=== PATIENT | male | born 1955 | race Caucasian/White ===

== ENCOUNTER → 2016-11-12 | Day surgery (SDC) | payer BC ==
[~2016-11-12] VITALS: Ht 188 cm; Wt 132.0 kg
[~2016-11-12] MED LIST: ACET-1256 PO; ACETAMINOPHEN 325 MG TAB PO PRN; AMLO-110 PO; ASPI81TA28 PO; ATEN50TA8 PO; ATOR-24 PO; ATROPINE SULFATE 0.1 MG/ML 5ML SYR IV PRN; CARV12.52 PO; CLOP1TAB5 PO; COLC0.6T54 PO; CYAN10005 PO; DEXL60CA4 PO; FENTANYL CITRATE INJ 50 MCG/1 ML 2 ML VIAL ONE; FURO-85 PO; HEPARIN SOD (PORCINE) 1000 UNIT/ML 10 ML VIAL ONE; INDO-22 PO; ISOS60TA2 PO; MIDAZOLAM HCL 1 MG/ML 2ML VIAL ONE; NITROGLYCERIN/D5W 100MCG/ML 20ML SYR ONE; NTRGSL/4 UT; NiCARDipine HCL INJ 2.5 MG/ML 10 ML AMP ONE; OMEG10007 PO; ONDANSETRON INJ 2 MG/ML 2 ML VIAL IV PRN; RAMI5CAP32 PO; SODIUM CHLORIDE 0.9% 1000ML 250 ML IV PRN
[2016-11-12 08:47] VITALS: BP 143/84; PULSE 65; TEMP 36.5; O2SAT 95; Ht 188 cm; Wt 132.0 kg
--- NOTE | 2016-11-12 11:41 | Discharge Instructions ---
Discharge Instructions Procedure Procedure Date: Nov 12, 2016. Reason for Visit: Abdnormal Stress Test, Angina *Dr Richey To Do*. Discharge Discharge Date: Nov 12, 2016. Discharge Diagnosis: s/p cardiac catheterization demonstrating 99% ostial RCA occlusion with left to right collaterals Last Recorded Wt (Kilograms): 132 Anesthesia Post Anesthesia Instructions: If you have had General Anesthesia or IV Sedation: * Do not drive today. * Resume driving when surgeon permits. * Do not make important decisions or sign legal documents today. * Call surgeon for: 1. Temperature elevations greater than 101 degrees F. 2. Uncontrollable pain. 3. Excessive bleeding. 4. Persistent nausea and vomiting. 5. Medication intolerance (nausea, vomiting or rash). * For nausea and vomiting use only clear liquids such as: tea, soda, bouillon until nausea subsides, then gradually increase diet as tolerated. * If you have any concerns or questions, call your surgeon's office. If physician is unavailable and it is an emergency, call 911 or go to the nearest emergency room. Instructions Activity Recommendations: limitations as noted below Return to School/Work: with the following limitations Recommended Home Diet: low sodium, low cholesterol Allergies: Coded Allergies: No Known Allergies (Unverified , 11/12/16) Provider Instructions ACTIVITY RECOMMENDATIONS: Excess manipulation of the wrist should be avoided for the next 24-48 hours. * No lifting over 2 pounds (approximately a 1/2 gallon of milk) with the utilized arm for 24 hours. * No strenuous activity such as bowling or tennis for 3 days. * Keep the site of the procedure covered with a bandage for 24 hours. *You may shower the day after the procedure. Do not take a tub bath or submerge the puncture site in water for the next 3 days. *Do not operate any motorized equipment for 3 days. SPECIAL CARE INSTRUCTIONS: The site may be slightly bruised and sore following your procedure. Should any of the following occur, contact the DrNubia who performed your procedure. 1. Redness/inflammation, swelling, chills, or fever, or colored drainage at procedure site within 3-7 days after your procedure. 2. Coldness, discoloration, ongoing numbness, severe pain, or swelling. Expect mild tingling of hand and tenderness at the puncture site for up to three days. If this persists beyond three days, or other symptoms develop, notify the Dr. who performed your procedure. BLEEDING: If the procedure site on your wrist begins to bleed, do not panic 1. Place 1 or 2 fingers firmly just slightly above the insertion site to stop the bleeding. You may be able to feel your pulse as you hold pressure. 2. Lift your finger after 5 minutes to see if the bleeding has stopped. 3. Once the bleeding has stopped, gently wipe the wrist area clean with a bandage. * If the bleeding from your wrist does not stop after 10 minutes, or if there is a large amount of bleeding or spurting, call 911 ([address] not drive yourself to the hospital). SKIN IRRITATION: * You may experience some redness and/or swelling in the area where radiation was administered. If any skin irritation occurs, please contact your family physician. FOLLOW UP VISIT: Keep any scheduled doctor appointments. Follow Up Additional Instructions: Avoid strenuous activity until follow up with Dr. Richey Follow-up with: Dr. Richey as scheduled. Padmini Bee Recommendations: Call your doctor if: * Temperature above 101 degrees * Pain not relieved by pain medicine ordered * There is increased drainage or redness from any incision * You have any unanswered questions or concerns. Your Doctors Instructions noted above were prepared by provider Jaxon Richey. Patient Signature Section: Patient Instructions Signature Page Michael Myers Patient (or Guardian) Signature/Date: I have read and understand the instructions given to me by my caregivers. Caregiver/RN/Doctor Signature/Date: The above-named patient and/or guardian has received patient instructions on this date. + Original Patient Signature Page (only) stays with chart. Please make copy for patient.
--- NOTE | 2016-11-12 11:45 | Cardiac Catheterization ---
Procedure Note Procedure Date Nov 12, 2016. Pre-Procedure Diagnosis Angina, Positive Stress Test, CAD AUC Score 8 Post-Procedure Diagnosis Severe CAD Procedure(s) Performed Coronary Angiography, Left Heart Cath Operator [employer] Dr. Richey Veterinary Technician(s) Arnel RTR Estimated Blood Loss 8cc Medication(s) Fentanyl, Heparin, Nicardipine, Nitroglycerin, Versed, Lidocaine 1% Summary of Findings 99% ostial RCA occlusion with left to right collaterals Hemodynamics Rest Ao: 107/73/89 Final Ao: 134/76/101 LV: 133/6/11 Specimens None Radiation Exposure (mGy) 2411 Contrast (mls) 145 Procedural Complication(s) None Disposition Mobile Application Development Lead Holding/Recovery ACC Data Cardiac Status Clinical evaluation leading to the procedure CAD Presntation: Unstable angina, Positive Stress Test Anginal Classification: CCS II Heart Failure: No Cardiogenic Shock w/in 24Hrs: No Cardiac Arrest w/in 24Hrs: No Imaging studies past 6 months: Yes Stress studies past 6 months: Yes Stress Echocardiogram: Yes - Positive, Risk/Extent of Ischemia (High) Stress Testing w/SPECT MPI: No Cardiac CTA: No Coronary Anatomy Dominant: Right Left Main (% Stenosis): Normal LAD (% Stenosis): Ostial (0%), Proximal (10%), Mid (30%), Distal (30%) D1 (% Stenosis): Normal D2 (% Stenosis): Normal D3 (% Stenosis): Ostial (40%), Proximal (0%), Mid (0%), Distal (0%) Circumflex (% Stenosis): Ostial (20%), Proximal (10%), Mid (0%), Distal (0%) OM1 (% Stenosis): Ostial (0%), Proximal (0%), Mid (20%), Distal (10%) R PDA (% Stenosis): Ostial (99% ostial. Large vessel fill via left to right collaterals.) Ramus (% Stenosis): Normal (large vessel) Diagnostic Status: Elective Closure Device Percutaneous Entry Location: Radial Closure Device: Radial Band Recommendations: management recommendations (Will discuss treatment of RCA GENERAL PARTNER with interventionalist at tertiary care center, Add Imdur 60mg daily) Intraprocedure Events Significant Dissection: No Perforation: No
[2016-11-12 14:00] VITALS: BP 128/80; PULSE 60; O2SAT 95
--- NOTE | 2016-11-13 10:36 | Procedure Note ---
Post-Mod Sedation Assessment General Date of Moderate Sedation Nov 13, 2016. Review - Discharge Criteria Vital Signs Stable: Yes Alert/Oriented/Conversant: Yes Returned to Baseline Mental St: Yes Nausea Absent/Minimal: Yes Pain/Discomfort/Absent/Minimal: Yes Normal/Baseline Respirations: Yes Active Bleeding?: No Pt Received D/C Instructions: Yes Prescriptions Given: Transmitted Specific Proced. D/C Criteria Distal Pulses Present (Cardiac: Yes Groin site assessed-Card Cath: Yes Voided Prior To Discharge: Yes Discharged Patients Adult Escort/Transportation: Yes
--- NOTE | 2016-11-13 10:37 | Procedure Note ---
Pre-Mod Sedation Assessment General Date of Moderate Sedation: Nov 13, 2016. Review Cardiovascular: regular rate, rhythm, no edema, no gallop, no JVD, no murmur Abdomen: soft Lungs: chest non-tender, lungs clear Pre-Sedation Airway Assessment Oral Cavity: WNL Short Thick Neck: No Hx of Sleep Apnea: No Smoking Status: Never Smoker ASA Classification: Class III Procedure Planning Contraindications-for Mod Sed: None Yes Notes The planned sedation has been discussed with the patient and consent obtained. I have identified the patient, determined the appropriateness of sedation and have assessed the patient immediately prior to the procedure. All medicine(s) and interventions are by my order.
== END | disposition home or self-care (01) ==
LOC: C.CATH 08:30
PROVIDERS: ATTEND Internal Medicine Cardiovascular Disease
DX: I20.8 Other forms of angina pectoris (principal); R94.39 Abnormal result of other cardiovascular function study; I49.3 Ventricular premature depolarization; R07.89 Other chest pain; R00.1 Bradycardia, unspecified; K21.0 Gastro-esophageal reflux disease with esophagitis; M19.90 Unspecified osteoarthritis, unspecified site; L71.9 Rosacea, unspecified; M10.9 Gout, unspecified; N52.9 Male erectile dysfunction, unspecified; E78.5 Hyperlipidemia, unspecified; Z68.37 Body mass index [BMI] 37.0-37.9, adult; I10 Essential (primary) hypertension; K44.9 Diaphragmatic hernia without obstruction or gangrene; Q27.33 Arteriovenous malformation of digestive system vessel; I77.810 Thoracic aortic ectasia; R91.1 Solitary pulmonary nodule; Z82.49 Family history of ischemic heart disease and other diseases of the circulatory system; Z80.0 Family history of malignant neoplasm of digestive organs; Z87.891 Personal history of nicotine dependence; I25.10 Atherosclerotic heart disease of native coronary artery without angina pectoris

== ENCOUNTER → 2017-06-20 | Day surgery (SDC) | payer BC ==
[~2017-06-20] VITALS: Ht 190.5 cm; Wt 130.0 kg
[2017-06-20 11:16] VITALS: Ht 190.5 cm; Wt 130.0 kg
[2017-06-20 11:17] VITALS: BP 135/80; PULSE 57; TEMP 36.9; O2SAT 97
[2017-06-20 11:31] LABS: HEMATOCRIT 48.4 % (42-52); MEAN CORPUSCULAR HEMOGLOBIN 32.4 pg (25-34); MEAN PLATELET VOLUME 9.8 fL (7.4-10.4); PLATELET COUNT 228 K/uL (130-400); RED BLOOD COUNT 5.15 M/uL (4.7-6.1); WHITE BLOOD COUNT 5.78 K/uL (4.8-10.8)
[2017-06-20 11:35] LABS: MEAN CORPUSCULAR HGB CONC 34.5 g/dl (32-36)
[2017-06-20 11:42] LABS: PROTHROMBIN TIME (PATIENT) 10.7 SECONDS (9.0-12.0)
[2017-06-20 12:56] LABS: BUN/CREATININE RATIO 15.2 (10-20); CALCIUM 9.2 mg/dl (8.5-10.1); CREATININE 0.91 mg/dl (0.60-1.40); POTASSIUM 4.4 mmol/L (3.5-5.1)
--- NOTE | 2017-06-20 14:06 | Procedure Note ---
Pre-Mod Sedation Assessment General Date of Moderate Sedation: Jun 20, 2017. Vital Signs: Vital Signs Past 12 Hours Date Time Temp Pulse Resp B/P (MAP) Pulse Ox O2 Delivery O2 Flow Rate FiO2 06/20/17 11:17 36.9 57 18 135/80 97 Room Air Review Cardiovascular: regular rate, rhythm, no edema, no gallop Abdomen: normal bowel sounds, non tender, soft Lungs: chest non-tender, lungs clear, normal breath sounds Pre-Sedation Airway Assessment Oral Cavity: WNL Short Thick Neck: Yes Hx of Sleep Apnea: Yes Smoking Status: Former Smoker Mallampati Classification: Class III ASA Classification: Class IV Procedure Planning Contraindications-for Mod Sed: None Yes Notes The planned sedation has been discussed with the patient and consent obtained. I have identified the patient, determined the appropriateness of sedation and have assessed the patient immediately prior to the procedure. All medicine(s) and interventions are by my order.
--- NOTE | 2017-06-20 14:06 | History & Physical Bridge Note ---
H&P Re-Evaluation Bridge Note: I have examined the patient, reviewed the History & Physical and in the interval since the performance of the History & Physical I have noted the following changes of clinical significance: No changes noted
--- NOTE | 2017-06-20 14:07 | Procedure Note ---
Post-Mod Sedation Assessment General Date of Moderate Sedation Jun 20, 2017. Vital Signs: Vital Signs Past 12 Hours Date Time Temp Pulse Resp B/P (MAP) Pulse Ox O2 Delivery O2 Flow Rate FiO2 06/20/17 11:17 36.9 57 18 135/80 97 Room Air Review - Discharge Criteria Vital Signs Stable: Yes Alert/Oriented/Conversant: Yes Returned to Baseline Mental St: Yes Nausea Absent/Minimal: Yes Pain/Discomfort/Absent/Minimal: Yes Normal/Baseline Respirations: Yes Active Bleeding?: No Pt Received D/C Instructions: N/A Prescriptions Given: None Specific Proced. D/C Criteria Distal Pulses Present (Cardiac: Yes Groin site assessed-Card Cath: N/A Voided Prior To Discharge: N/A Discharged Patients Adult Escort/Transportation: N/A
[2017-06-20 14:14] LABS: ISTAT CREATININE 0.8 mg/dl (0.6-1.3); ISTAT HEMOGLOBIN 15.6 g/dl (14.0-18.0); ISTAT IONIZED CALCIUM 1.11 mmol/l (1.12-1.32)
--- NOTE | 2017-06-20 14:33 | Cardiac Catheterization ---
Procedure Note Procedure Date Jun 20, 2017. Pre-Procedure Diagnosis Angina, CAD AUC Score 7 Post-Procedure Diagnosis Severe CAD Procedure(s) Performed Coronary Angiography, Left Heart Cath Friction Saw Operator Dr. Richey Party Plan Sales Unit Sales Leader(s) Darrion FIRER KILN Estimated Blood Loss 10cc Medication(s) Fentanyl, Heparin, Nicardipine, Nitroglycerin, Versed, Lidocaine 1% Summary of Findings Severe ostial RCA in stent restenosis Hemodynamics Rest Ao: 110/70/88 Final Ao: 135/70/102 LV: 113/2/5 Recommendations PCI without planned CABG Specimens None Radiation Exposure (mGy) 3225 Contrast (mls) 180 Anesthesia Moderate sedation, Start 1245, End 1350 Procedural Complication(s) None Disposition Manager Pacu Holding/Recovery ACC Data Cardiac Status Clinical evaluation leading to the procedure CAD Presntation: Unstable angina Anginal Classification: CCS III Heart Failure: No Cardiogenic Shock w/in 24Hrs: No Cardiac Arrest w/in 24Hrs: No Stress studies past 6 months: Yes Stress Testing w/SPECT MPI: Yes - Positive, Risk/Extent of Ischemia ( Intermediate) Coronary Anatomy Dominant: Right (RCA subselectively visualized with JR4, unsuccessful attempts made with AR1, ALR1,2, 3DRC, and site seer 3.5 catheter) Left Main (% Stenosis): Normal LAD (% Stenosis): Proximal (10%), Mid (30%), Distal (20%) D1 (% Stenosis): Proximal (20%), Mid (20%), Distal (10%) D2 (% Stenosis): Ostial (30%) Circumflex (% Stenosis): Proximal (10%), Mid (10%), Distal (10%) OM1 (% Stenosis): Proximal (20%), Mid (10%), Distal (10%) L PL1 (% Stenosis): Mid (10%), Distal (10%) RCA (% Stenosis): Ostial (95% in stent restenosis. 2-3mm of stent extends from coronary ostium into aorta.), Proximal (90% in stent restenosis extending approximately 1 cm from ostium. Stent appears patent distal to ostial stenosis.) R PDA (% Stenosis): Ostial (Inadequately visualized) R PL1 (% Stenosis): Ostial (Inadequately visualized) Diagnostic Status: Urgent Closure Device Percutaneous Entry Location: Radial Closure Device: Radial Band Recommendations: PCI without planned CABG Intraprocedure Events Significant Dissection: No Perforation: No
[2017-06-20 16:00] VITALS: BP 120/84; PULSE 68; O2SAT 95
== END | disposition home or self-care (01) ==
LOC: C.CATH 10:40
PROVIDERS: ATTEND Internal Medicine Cardiovascular Disease
DX: I25.10 Atherosclerotic heart disease of native coronary artery without angina pectoris (principal); T82.855A Stenosis of coronary artery stent, initial encounter; Y83.1 Surgical operation with implant of artificial internal device as the cause of abnormal reaction of the patient, or of later complication, without mention of misadventure at the time of the procedure; K21.0 Gastro-esophageal reflux disease with esophagitis; M10.9 Gout, unspecified; M15.9 Polyosteoarthritis, unspecified; E78.5 Hyperlipidemia, unspecified; I10 Essential (primary) hypertension; K44.9 Diaphragmatic hernia without obstruction or gangrene; Z79.899 Other long term (current) drug therapy; Z79.82 Long term (current) use of aspirin; Z87.891 Personal history of nicotine dependence

== ENCOUNTER 2018-11-20 08:10 | Inpatient (IN) ==
--- NOTE | 2018-10-28 15:34 | Anesthesiology Consultation ---
Date of Service October 28, 2018 Assessment & Plan (1) Encounter for pre-operative examination: Plan: Cardiology clearance 11/03/2018: Recommend resting echocardiography to assess aortic valve status, systolic function. Patient may proceed as planned if echocardiography is acceptable. ---11/10: "Echo acceptable, unchanged from 06/2017. Ok for procedure." OK TO HOLD PLAVIX X 7 DAYS PRIOR TO SURGERY. Chart Review Chart Review: Acceptable Risk for Surgery and Patient seen in Pre Admission Testing Teaching & Discussion Instructed NPO after midnight before surgery, except medications with 15 cc of water. Medication instructions provided according to the PAT guidelines. History Surgery Operation Date: 11/20/18 12:30 Proposed Procedures p Right Reverse Total Shoulder Arthroplasty - Edson Galindo, Height/Weight Height: 6 ft 3 in Weight: 139.5 kg Allergies Allergy/AdvReac Type Severity Reaction Status Date / Time No Known Allergies Allergy Verified 10/26/18 11:56 Medications Home Medications Medication Instructions Recorded Confirmed Last Taken amlodipine [Norvasc] 2.5 mg PO DAILY 09/02/18 10/26/18 Unknown atorvastatin [Lipitor] 40 mg PO DAILY 09/02/18 10/26/18 Unknown carvedilol [Coreg] 12.5 mg PO BID 09/02/18 10/26/18 Unknown clopidogrel [Plavix] 75 mg PO DAILY 09/02/18 10/26/18 Unknown dexlansoprazole [Dexilant] 60 mg PO DAILY 09/02/18 10/26/18 Unknown ramipril 5 mg PO BID 09/02/18 10/26/18 Unknown Vitamin B 1 tab PO DAILY 10/26/18 10/26/18 Unknown Vitamin B12 1 tab PO DAILY 10/26/18 10/26/18 Unknown aspirin 81 mg PO DAILY 10/26/18 10/26/18 Unknown furosemide [Lasix] 20 mg PO DAILY PRN 10/26/18 10/26/18 Unknown Past Medical History Medical History Rotator cuff arthropathy of right shoulder Alcohol abuse 4-6 drinks per day CAD (coronary artery disease) Has had 4 total caths. 2 stents to the RCA early 2016, had subsequent unstable angina and had 3rd CLARY placed in RCA 06/2017. Remains on Plavix. GERD (gastroesophageal reflux disease) Hiatal hernia Hyperlipidemia Hypertension Osteoarthritis Past Family History Family History Mother Family hx of colon cancer Father Family hx of colon cancer Grandfather (Paternal) Family hx of colon cancer Grandmother (Paternal) Family hx of colon cancer Past Surgical History Surgical History History of arthroscopy RT KNEE X 2 History of cardiac cath X 2 History of colonoscopy WITH POLYPECTOMY History of heart artery stent OCT 2016 X 2 STENTS JUNE 2017 X 1 STENT ([place]) History of tonsillectomy Past Anesthesia History No Hx of Anesthesia Complications and No Family Hx of Anesthesia Complications History of PONV No Motion Sickness Screening History of Motion Sickness: No Social History tobacco type: cigars (rarely) Do You Dip or Chew Tobacco: No Hx Alcohol Use: Yes Alcohol type: beer alcohol intake frequency: 3 or more drinks per day Alcohol Intake Frequency Comment: 4-6 BEER DAILY ON AVERAGE Hx Substance Use: No substance use type: does not use Exercise / Class Metabolic Activity II 4-5 Yardwork/Stairs/Walk up hill (does 15 steps at home without CP or SOB) Review of Systems Pt denies any recent chest pain, shortness of breath, palpitations, cough, fever or URI. +has cough year round 2/2 hiatal hernia/reflux. Physical Exam Vital Signs BP: 131/81 P: 73bpm SPO2: 96% RA T: 98.4 F R: 16 ENMT Mouth: + dental restorations (one crown); no chipped teeth and no loose teeth Thyromental Distance: > or= 3.5 Finger Breadths (3.5) Mallampati Class: II Neck + short neck and + facial hair (pt with medium length cerda, OK to shave prir to surgery); neck extension not limited Respiratory normal respiratory effort Auscultation: lungs clear to auscultation bilaterally Cardiovascular Rate/Rhythm: regular rate and regular rhythm Heart Sounds: no murmur Vessels: no carotid bruit Testing Electrocardiogram Date: 03/11/18 Findings: + NSR @ (73) Sinus arrhythmia with frequent PVCs, otherwise normal. Chest X-Ray Date: 10/28/18 Findings: + NAD Echocardiogram Date: 11/10/18 EF: 55-59% The examination is adequate to evaluate the referral indication. The left ventricular cavity size is normal. Mild concentric LVH. The basal septum is thickened and angulated consistent with sigmoid septum. The left ventricular wall motion is normal. Ejection fraction is normal. Grade 1 diastolic dysfunction. Moderate aortic valve sclerosis is present with mild aortic valve regurgitation. Aortic root and proximal ascending aorta are mildly enlarged. Compared to prior study of 06/22/2017, there is no significant change. Stress Test Date: 04/18/17 Resting EF: 63% Myocardial perfusion study is abnormal and suggestive of inferior wall scar very subtle mild superimposed ischemia. LV cavity size is noted to be normal on the rest and stress studies. There is no stress-induced transient ischemic dilation of the left ventricle. Gated SPECT imaging reveals mild inferior wall hypokinesis. Cardiac Catheterization Date: 06/23/17 The coronary arteries have significant 1 vessel disease. The previously placed stent in the proximal RCA has significant in-stent restenosis. There was complete revascularization achieved. The percutaneous coronary intervention of the ostial and proximal RCA with successful. The devices used include a drug- eluting stent. Laboratory Results 10/28/18 15:59 10/28/18 15:59 Blood Type O Positive 10/28/18 15:59 Antibody Screen NEGATIVE 10/28/18 15:59 PT 10.7 Seconds (9.0-12.0) 10/28/18 15:59 INR 1.1 (0.9-1.1) 10/28/18 15:59 APTT 28.3 Seconds (21.0-31.0) 10/28/18 15:59
--- NOTE | 2018-10-28 15:36 | PAT Medication Instructions ---
Medication Instructions Date of Service October 28, 2018 Home Medications amlodipine [Norvasc] 2.5 mg PO QPM atorvastatin [Lipitor] 40 mg PO DAILY carvedilol [Coreg] 12.5 mg PO BID clopidogrel [Plavix] 75 mg PO DAILY dexlansoprazole [Dexilant] 60 mg PO DAILY ramipril 5 mg PO BID Vitamin B 1 tab PO DAILY Vitamin B12 1 tab PO DAILY aspirin 81 mg PO DAILY furosemide [Lasix] 20 mg PO DAILY PRN ASK your prescriber and surgeon clopidogrel [Plavix] 75 mg PO DAILY DO NOT take the morning of surgery ramipril 5 mg PO BID Vitamin B 1 tab PO DAILY Vitamin B12 1 tab PO DAILY furosemide [Lasix] 20 mg PO DAILY Take morning of surgery With a small sip of water, OTHERWISE NOTHING TO EAT OR DRINK AFTER MIDNIGHT: atorvastatin [Lipitor] 40 mg PO DAILY carvedilol [Coreg] 12.5 mg PO BID dexlansoprazole [Dexilant] 60 mg PO DAILY aspirin 81 mg PO DAILY Take evening before surgery amlodipine [Norvasc] 2.5 mg PO QPM carvedilol [Coreg] 12.5 mg PO BID ramipril 5 mg PO BID Other Notes If you have any questions please call us at [phone] or [phone] or [phone] or [phone]
--- NOTE | 2018-10-28 16:19 | XRay Report ---
XR chest Pre-admission PA/Lat CLINICAL HISTORY: 63 years-old Male presenting with preoperative assessment. TECHNIQUE: PA and lateral views of the chest were obtained. COMPARISON: None. FINDINGS: Atherosclerosis of the aortic arch. Cardiac silhouette normal in size. Lungs and pleural spaces clear . Degenerative changes of the thoracic spine. Upper abdomen normal. IMPRESSION: 1. No acute cardiopulmonary disease. Electronically signed by: Kentrell Ordonez M.D. 10/28/2018 4:18 PM
[2018-10-28 16:24] LABS: Basophils # (auto) 0.04 K/uL (0-0.2); Basophils % (auto) 0.6 %; Eosinophils # (auto) 0.23 K/uL (0-0.5); Eosinophils % (auto) 3.6 %; Hematocrit (blood only) 48.4 % (42-52); Hemoglobin 16.6 g/dL (14.0-18.0); Immature Granulocytes # (auto) 0.01 K/uL (0.00-0.02); Immature Granulocytes % (auto) 0.2 %; Lymphocytes # (auto) 1.88 K/uL (1.2-3.4); Lymphocytes % (auto) 29.4 %; Mean Corpuscular Hgb Conc 34.3 g/dL (32-36); Mean Corpuscular Volume 95.5 fL (80-100); Mean Platelet Volume 10.2 fL (7.4-10.4); Neutrophils # (auto) 3.53 K/uL (1.4-6.5); Neutrophils % (auto) 55.2 %; Platelet Count 229 K/uL (130-400); RDW Coefficient of Variation 13.8 % (11.5-14.5); RDW Standard Deviation 48.5 fL (36.4-46.3); Red Blood Count 5.07 M/uL (4.7-6.1); White Blood Count 6.39 K/uL (4.8-10.8)
[2018-10-28 16:31] LABS: BUN Creatinine Ratio 19.5 (10-20); Calcium 8.8 mg/dl (8.5-10.1); Creatinine Clr Calc Pharmacy 117.1 ml/min; Est GFR (African American) 96.4; Est GFR (Non-African American) 83.2; Potassium 4.2 mmol/L (3.5-5.1)
[2018-10-28 16:44] LABS: INR 1.1 (0.9-1.1); Partial Thromboplastin Ratio 1.1; Partial Thromboplastin Time 28.3 Seconds (21.0-31.0); Prothrombin Time 10.7 Seconds (9.0-12.0)
--- NOTE | 2018-11-20 06:05 | History & Physical Report ---
Date of Service November 20, 2018 Assessment & Plan (1) Rotator cuff arthropathy of right shoulder: We will proceed with a reverse right shoulder arthroplasty. Postoperatively he will be placed in a sling and kept overnight for postoperative medical management. He plans to use energy physical therapy upon discharge. Present on Admission?: Yes History of Present Illness Chief Complaint: Rotator cuff arthropathy of the right shoulder Primary Care Provider: Dada Engle MD Michael is a pleasant 63-year-old male who is been dealing with chronic increasing right shoulder pain. I did a right shoulder arthroscopy on him in November 2015. He had a massive unrepairable rotator cuff tear at that time. I been treating him with serial injections. Unfortunately the injections are no longer helping. He has elected to proceed with a reverse right shoulder arthroplasty. Allergies Allergy/AdvReac Type Severity Reaction Status Date / Time No Known Allergies Allergy Verified 10/26/18 11:56 Home Medications Home Medications Medication Instructions Recorded Confirmed Type amlodipine [Norvasc] 2.5 mg PO DAILY 09/02/18 10/26/18 History atorvastatin [Lipitor] 40 mg PO DAILY 09/02/18 10/26/18 History carvedilol [Coreg] 12.5 mg PO BID 09/02/18 10/26/18 History clopidogrel [Plavix] 75 mg PO DAILY 09/02/18 10/26/18 History dexlansoprazole [Dexilant] 60 mg PO DAILY 09/02/18 10/26/18 History ramipril 5 mg PO BID 09/02/18 10/26/18 History Vitamin B 1 tab PO DAILY 10/26/18 10/26/18 History Vitamin B12 1 tab PO DAILY 10/26/18 10/26/18 History aspirin 81 mg PO DAILY 10/26/18 10/26/18 History furosemide [Lasix] 20 mg PO DAILY PRN 10/26/18 10/26/18 History Past Med/Surg History Medical History Rotator cuff arthropathy of right shoulder Alcohol abuse 4-6 drinks per day CAD (coronary artery disease) Has had 4 total caths. 2 stents to the RCA early 2016, had subsequent unstable angina and had 3rd CLARY placed in RCA 06/2017. Remains on Plavix. GERD (gastroesophageal reflux disease) Hiatal hernia Hyperlipidemia Hypertension Osteoarthritis Surgical History History of arthroscopy RT KNEE X 2 History of cardiac cath X 2 History of colonoscopy WITH POLYPECTOMY History of heart artery stent OCT 2016 X 2 STENTS JUNE 2017 X 1 STENT (FOLLOWS GUSTAVO) History of tonsillectomy Family History Mother Family hx of colon cancer Father Family hx of colon cancer Grandfather (Paternal) Family hx of colon cancer Grandmother (Paternal) Family hx of colon cancer Social History Preferred Language: German Communication Ability: Effective Bonbon Cream Warmer Required: No Beliefs That Will Affect Care: None Current Living Situation: Spouse Other Information That Helps Us Care for You: No Feels Safe at Home: Yes Safety Concerns: Feels Safe At This Time Smoking Status: Current some day smoker Hx Alcohol Use: Yes Hx Substance Use: No Review of Systems All systems reviewed & are unremarkable except as noted in HPI & below Physical Exam Constitutional: WD/WN, vitals as above Eyes: PERRL, conjunctivae normal, anicteric sclerae ENMT: external ear and nose normal, oropharynx normal Neck: trachea midline, no thyromegaly Respiratory: normal respiratory effort Cardiovascular: RRR, no murmur, no edema Gastrointestinal (Abdomen): normal bowel sounds, soft, nontender, no hepatosplenomegaly Musculoskeletal: Physical examination of the right shoulder reveals decreased range of motion and significant weakness. There is tenderness palpation along the anterior glenohumeral joint line. The right upper extremity is neurovascularly intact. Psychiatric: A+Ox3, euthymic affect Results & Data Diagnostic Findings Radiographs of the right shoulder show some signs of osteoarthritis with blunting of the greater tuberosity and some superior migration of the humeral head on the glenoid.
[~2018-11-20 08:10] MED LIST changes: -ACET-1256 PO; -ACETAMINOPHEN 325 MG TAB PO PRN; +ACETAMINOPHEN 500 MG TAB PO SCH; -AMLO-110 PO; -ASPI81TA28 PO; -ATEN50TA8 PO; -ATOR-24 PO; -ATROPINE SULFATE 0.1 MG/ML 5ML SYR IV PRN; -CARV12.52 PO; +CEFAZOLIN 3000MG 65 ML IV SCH; -CLOP1TAB5 PO; -COLC0.6T54 PO; -CYAN10005 PO; -DEXL60CA4 PO; +FAMOTIDINE 20 MG TAB PO SCH; -FENTANYL CITRATE INJ 50 MCG/1 ML 2 ML VIAL ONE; -FURO-85 PO; +GABAPENTIN 300 MG x 2 PO SCH; -HEPARIN SOD (PORCINE) 1000 UNIT/ML 10 ML VIAL ONE; -INDO-22 PO; -ISOS60TA2 PO; +LR 15ML/HR IV SCH; +LR 60ML/HR IV SCH; -MIDAZOLAM HCL 1 MG/ML 2ML VIAL ONE; -NITROGLYCERIN/D5W 100MCG/ML 20ML SYR ONE; -NTRGSL/4 UT; -NiCARDipine HCL INJ 2.5 MG/ML 10 ML AMP ONE; -OMEG10007 PO; -ONDANSETRON INJ 2 MG/ML 2 ML VIAL IV PRN; -RAMI5CAP32 PO; +ROPIVACAINE 0.5% 5 MG/ML 30 ML VIAL ONE; +ROPIVACAINE 0.5% HCL/PF 150 MG, BUPIVACAINE 0.5% MPF 30 ML, EPINEPHrine 30MG/30ML (OR U... INFIL SCH; -SODIUM CHLORIDE 0.9% 1000ML 250 ML IV PRN; +TRANEXAMIC ACID 1,000 MG **IV Intra-op IV SCH; +TRANEXAMIC ACID 1,000 MG **IV Pre-op IV SCH
[2018-11-20] MEDS ORDERED: BUPIVACAINE 0.5 % 5 MG/1 ML PF 10ML VIAL ONE (08:19)
--- NOTE | 2018-11-20 08:25 | History & Physical Bridge Note ---
Date of Service November 20, 2018 History & Physical Bridge Note I have examined the patient, reviewed the History & Physical and in the interval since the performance of the History & Physical I have noted the following changes of clinical significance: no changes noted
[2018-11-20] MEDS ORDERED: ONDANSETRON INJ 2 MG/ML 2 ML VIAL ONE (09:59)
[2018-11-20] MEDS ORDERED: MIDAZOLAM HCL 1 MG/ML 2ML VIAL ONE ×2 (09:59→10:18)
[2018-11-20] MEDS ORDERED: ROCURONIUM BROMIDE 10 MG/ML 5 ML VIAL ONE (09:59)
[2018-11-20] MEDS ORDERED: PROPOFOL IV EMULSION 10 MG/ML 20 ML VIAL IV ONE (09:59)
[2018-11-20] MEDS ORDERED: fentaNYL citrate 100 MCG/2 ML VIAL ONE (09:59)
[2018-11-20] MEDS ORDERED: LIDOCAINE HCL 2% 2 ML VIAL/AMP(20MG/ML) INFIL ONE (09:59)
[2018-11-20] MEDS ORDERED: ORTHO JOINT ANESTHETIC ONE (10:51)
[2018-11-20] MEDS ORDERED: POVIDONE-IODINE OP SOLN 30 ML BTL ONE (10:51)
[2018-11-20] MEDS ORDERED: ePHEDrine sulfate 50 MG/ML AMP IV PRN (11:02)
[2018-11-20] MEDS ORDERED: fentaNYL citrate 100 MCG/2 ML VIAL IV PRN (11:02)
[2018-11-20] MEDS ORDERED: ATROPINE SULFATE 0.1 MG/ML 10ML SYR IV PRN (11:02)
[2018-11-20] MEDS ORDERED: ONDANSETRON INJ 2 MG/ML 2 ML VIAL IV PRN ×2 (11:02→14:07)
[2018-11-20] MEDS ORDERED: DEXAMETHASONE SOD INJ 4 MG/ML VIAL ONE (11:32)
[2018-11-20] MEDS ORDERED: ALBUTEROL HFA INHALER 8.5 GM ONE (11:32)
[2018-11-20] MEDS ORDERED: NEOSTIGMINE METHYLSULFATE 5 MG/5 ML SYR ONE (12:27)
[2018-11-20] MEDS ORDERED: SUCCINYLCHOLINE 100MG/5ML SYR ONE (12:27)
[2018-11-20] MEDS ORDERED: GLYCOPYRROLATE 0.2 MG/ML VIAL ONE (12:27)
[2018-11-20] MEDS ORDERED: VASOPRESSIN 20 UNIT/ML VIAL ONE (12:29)
--- NOTE | 2018-11-20 12:49 | Operative Report ---
Post Operative Report Pre & Post Diagnosis Operation Date: 11/20/18 10:40 Pre-Op Diagnosis: Chronic Rotator Cuff Tear Right Shoulder Post-Op Diagnosis: Chronic Rotator Cuff Tear Right Shoulder Procedure Operation Date: 11/20/18 10:40 Actual Procedures p Right Reverse Total Shoulder Arthroplasty(Right) - Edson Galindo DO Surgeon Edson Galindo DO Frame Expander Edson Barker PAC Estimated Blood Loss 300 Findings Consistent with Post-Op Diagnosis Specimens Right humeral head Complications none Disposition Disposition: Recovery Room Indications Michael is a pleasant 63-year-old male who is been dealing with a long history of chronic right shoulder pain. I did an arthroscopy on him over 2 years ago he had an ear repairable rotator cuff. He had a large subscap tear and superior migration of the humeral head of the glenoid. He went on to develop arthritis. After failing extensive conservative treatment including multiple injections, he is elected to proceed with a reverse right shoulder arthroplasty. Description of Procedure Implants used: I used a Biomet Comprehensive reverse total shoulder arthroplasty system with a size 16 press fit mini humeral stem, a 44 standard humeral tray and a 41 standard humeral bearing, a 28 mm baseplate with a 6.5 mm central screw and superior and inferior locking screws, and a size 41 mm eccentric glenosphere. The patient arrived at [facility] for the above procedure. There were seen in the preoperative holding area and the operative extremity was identified and signed. They were given a preoperative antibiotic and an interscalene nerve block. They were taken back to the operating room, laid on table in supine position, and put under general anesthesia. They were then put into the beachchair position. The shoulder was then prepped and draped in sterile fashion. A timeout was done and the patient in the operative extremity was properly identified. A deltopectoral approach was used. Dissection was taken down through the fascia and the deltoid was retracted laterally and the conjoined tendon was retracted medially. The anterior shoulder was exposed. The long head of the biceps tendon was tenodesed to the upper border of the pectoralis major. The subscapularis was then released off the lesser tuberosity with a centimeter of cuff tissue remaining. The inferior capsule was released and the humeral head was dislocated. A canal finding reamer was sent down the center of the humeral canal. Sequential reaming up to a size 15 reamer was done. Off that reamer, a proximal humeral resection guide was placed. The proximal humerus was resected at 135� of inclination and 25� of retroversion. Osteophytes were then removed and the glenoid was exposed. Time was spent doing a complete capsular and labral release. The glenoid guide was then placed in the inferior aspect of the glenoid. A 3.2 mm Steinmann pin was then placed into the glenoid vault at 10� of inclination. The glenoid baseplate was then reamed. The final size 28 mm baseplate was then impacted in the place. A 6.5 mm central screw was then placed followed by superior and inferior locking screws. A 41 mm eccentric glenoid sphere was then impacted into place. Surrounding soft tissues were then injected with 100 cc an orthopedic pain control cocktail. The proximal humerus was then exposed. Sequential broaching of the humerus up to a size 15 broach was done. Off that broach a standard humeral tray was trialed. The shoulder was then reduced, brought through a full range of motion and felt to be stable. The shoulder was then dislocated and the broach was removed. The final size 15 mini press-fit humeral stem was then impacted into place. Unfortunately the size 15 stem seemed loose. I was not happy with the press-fit. I removed the 15 mm stem and broached up to a size 16. This seem to be much better fit. I then placed the final size 16 mm implant. I was happy with the stability and the overall press- fit. A standard humeral bearing was then snapped onto a standard humeral tray and the ring-lock mechanism was engaged. The humeral tray was then impacted onto the humeral stem. The shoulder was once again reduced, brought through a full range of motion and felt to be stable. The subscapularis was chronically torn and not repairable. A dilute betadyne lavage was then done for 3 minutes. The joint was then irrigated with normal saline solution. Hemostasis was obtained. The skin was then closed with 2-0 Vicryl, 3-0V lock suture, and maria esther. A soft dressing and a regular arm sling was placed. The patient was then extubated and transferred to a hospital bed. They were taken to the postanesthesia care unit in stable condition. They tolerated the procedure well. I attest to the content of the Intraoperative Record and any orders documented therein. Any exceptions are noted below.
--- NOTE | 2018-11-20 13:43 | XRay Report ---
XR shoulder RT min 2V routine CLINICAL HISTORY: Post shoulder surgery COMPARISON: None. DISCUSSION: There are postsurgical changes of a reverse total right shoulder arthroplasty. There is n o dislocation. There are no acute fractures. There are overlying skin maria esther. IMPRESSION: 1. Postsurgical changes of a reverse total right shoulder arthroplasty 2. No fractures or dislocations identified Electronically signed by: Stanford Miller M.D. 11/20/2018 1:41 PM
[2018-11-20] MEDS ORDERED: NALOXONE HCL 0.4 MG/1 ML VIAL/CARP IV PRN (14:07)
[2018-11-20] MEDS ORDERED: METOCLOPRAMIDE HCL INJ 5 MG/ML 2 ML VIAL IV PRN (14:07)
[2018-11-20] MEDS ORDERED: HYDROmorphone INJ 0.5 MG/0.5 ML SYR IV PRN (14:07)
[2018-11-20] MEDS ORDERED: BISACODYL 10 MG SUPP PR PRN (14:07)
[2018-11-20] MEDS ORDERED: MAGNESIUM HYDROXIDE SUSP 30 ML UDC PO PRN (14:07)
--- NOTE | 2018-11-20 14:16 | Anesthesiology Progress Note ---
Date of Service November 20, 2018 Anesthesia Post Procedure Vital Signs Vital Signs: Temp Pulse Pulse Resp BP Pulse Ox 11/20/18 14:08 36.4 C L 56 L 16 129/77 95 11/20/18 13:45 36.1 C L 52 L 17 126/75 95 11/20/18 13:35 52 L 17 131/80 93 11/20/18 13:25 53 L 17 132/85 100 11/20/18 13:15 57 L 17 140/87 99 11/20/18 13:06 36 C L 62 14 173/94 H 95 11/20/18 11:03 59 L 20 144/82 H 100 11/20/18 09:08 37 C 69 20 138/92 94 Pain Intensity Right Shoulder: Pain Intensity: 2 Notes Mental Status: alert / awake / arousable and participated in evaluation Patient Amnestic to Procedure: Yes Nausea / Vomiting: adequately controlled Pain: adequately controlled Airway Patency, RR, SpO2: stable & adequate BP & HR: stable & adequate Hydration State: stable & adequate Anesthetic Complications: no major complications apparent and Pt Satisfied with anesthetic care
[2018-11-20] MEDS: SODIUM CHLORIDE 0.9% 1000ML 1,000 ML IV SCH (16:08)
[2018-11-20] MEDS: ACETAMINOPHEN 500 MG TAB PO SCH ×2 (16:08→21:36)
[2018-11-20] MEDS: KETOROLAC 30 MG/ML VIAL IV SCH ×2 (16:08→21:40)
[2018-11-20] MEDS: CEFAZOLIN 2000MG 2,000 MG/15 ML SYR IV SCH (19:40)
[2018-11-20] MEDS ORDERED: SENNA 8.6 MG TAB PO SCH (21:00)
[2018-11-20] MEDS: DOCUSATE SODIUM 100 MG CAP PO SCH (21:37)
[2018-11-20] MEDS: ENALAPRIL MALEATE 10 MG TAB PO SCH (21:37)
[2018-11-20] MEDS: CARVEDILOL 12.5 MG TAB PO SCH (21:39)
[2018-11-21] MEDS: KETOROLAC 30 MG/ML VIAL IV SCH ×2 (03:23→11:38)
[2018-11-21] MEDS: OXYCODONE HCL IR 5 MG TAB (IMMEDIATE RELEASE) PO PRN ×3 (03:30→11:34)
[2018-11-21] MEDS: CEFAZOLIN 2000MG 2,000 MG/15 ML SYR IV SCH (03:31)
[2018-11-21] MEDS: SODIUM CHLORIDE 0.9% 1000ML 1,000 ML IV SCH (04:19)
[2018-11-21] MEDS: ACETAMINOPHEN 500 MG TAB PO SCH (05:54)
[2018-11-21 06:09] LABS: Basophils # (auto) 0.01 K/uL (0-0.2); Basophils % (auto) 0.1 %; Hematocrit (blood only) 44.3 % (42-52); Hemoglobin 14.8 g/dL (14.0-18.0); Immature Granulocytes # (auto) 0.04 K/uL (0.00-0.02); Immature Granulocytes % (auto) 0.3 %; Lymphocytes # (auto) 1.21 K/uL (1.2-3.4); Mean Corpuscular Hgb Conc 33.4 g/dL (32-36); Mean Corpuscular Volume 95.5 fL (80-100); Mean Platelet Volume 10.2 fL (7.4-10.4); Monocytes # (auto) 1.09 K/uL (0.11-0.59); Monocytes % (auto) 9.1 %; Neutrophils # (auto) 9.69 K/uL (1.4-6.5); Neutrophils % (auto) 80.5 %; Platelet Count 216 K/uL (130-400); RDW Coefficient of Variation 13.7 % (11.5-14.5); RDW Standard Deviation 48.1 fL (36.4-46.3); Red Blood Count 4.64 M/uL (4.7-6.1); White Blood Count 12.04 K/uL (4.8-10.8)
[2018-11-21 06:36] LABS: BUN Creatinine Ratio 20.3 (10-20); Creatinine Clr Calc Pharmacy 136.5 ml/min; Est GFR (African American) 108.3; Est GFR (Non-African American) 93.5; Potassium 3.7 mmol/L (3.5-5.1)
[2018-11-21] MEDS: DOCUSATE SODIUM 100 MG CAP PO SCH (08:53)
[2018-11-21] MEDS: CARVEDILOL 12.5 MG TAB PO SCH (08:54)
[2018-11-21] MEDS: ENALAPRIL MALEATE 10 MG TAB PO SCH (08:59)
[2018-11-21] MEDS ORDERED: MULTIVITAMIN TAB PO SCH (09:00)
[2018-11-21] MEDS ORDERED: ASPIRIN 81 MG ECTAB PO SCH (09:00)
[2018-11-21] MEDS ORDERED: CLOPIDOGREL BISULFATE 75 MG TAB PO SCH (09:00)
[2018-11-21] MEDS ORDERED: PANTOprazole 40 MG TAB PO SCH (09:00)
[2018-11-21] MEDS ORDERED: ATORVASTATIN 40 MG TAB PO SCH (09:00)
[2018-11-21] MEDS ORDERED: AMLODIPINE BESYLATE 5 MG TAB PO SCH (09:00)
--- NOTE | 2018-11-21 09:05 | Orthopedic Progress Note ---
Date of Service November 21, 2018 Assessment & Plan (1) Rotator cuff arthropathy of right shoulder: Overall he is doing fairly well. The block still working some not too concerned about the radial nerve palsy at this time. I told him about radial nerve palsy and we will see how it wakes back up. He did get an Exparel block so the block might be lasting for up to 3 days. Overall his shoulder is doing well. He is not in any pain. He will be seen by physical therapy this morning for range of motion exercises. We will discharge him to home later today with oral pain medication. Present on Admission?: Yes Subjective Michael was seen and examined at bedside this morning. Overall is doing fairly well. He is still does not have any feeling in his right hand and he is unable to extend his right wrist. Otherwise she is doing okay is not having any pain in the shoulder. He has no complaints. Physical Exam Vital Signs (Past 24 Hours): Last Vital Signs Temp 36.6 C 11/21/18 07:40 Pulse 76 11/21/18 07:40 Resp 16 11/21/18 07:40 BP 111/70 11/21/18 07:40 Pulse Ox 94 11/21/18 07:40 Musculoskeletal: On physical examination of the right shoulder, the dressing is clean and dry. He is wearing a sling as instructed. He still does not have any feeling in the thumb of the dorsal aspect of his hand. He is able to flex his fingers but is unable to extend his wrist or extend his thumb. Results & Data Laboratory Results H & H 10/28/18 11/21/18 Range/Units 15:59 05:30 Hgb 16.6 14.8 (14.0-18.0) g/dL Hct 48.4 44.3 (42-52) % Coagulation 10/28/18 Range/Units 15:59 INR 1.1 (0.9-1.1) Diagnostic Findings Postoperative x-rays of the right shoulder show the prosthesis to be in anatomic alignment without any evidence of fracture, dislocation, or loosening.
--- NOTE | 2018-11-21 09:07 | Discharge Summary ---
Date of Service November 21, 2018 Admission HPI Per Admitting Provider Michael is a pleasant 63-year-old male who is been dealing with chronic increasing right shoulder pain. I did a right shoulder arthroscopy on him in November 2015. He had a massive unrepairable rotator cuff tear at that time. I been treating him with serial injections. Unfortunately the injections are no longer helping. He has elected to proceed with a reverse right shoulder arthroplasty. Specialty Data Orthopedic H & H 10/28/18 11/21/18 Range/Units 15:59 05:30 Hgb 16.6 14.8 (14.0-18.0) g/dL Hct 48.4 44.3 (42-52) % Coagulation 10/28/18 Range/Units 15:59 INR 1.1 (0.9-1.1) Discharge Data Consultations 11/20/18 14:07 Consult Case Management - Discharge Planning Routine Procedures Performed Operation Date: 11/20/18 10:40 Actual Procedures p Right Reverse Total Shoulder Arthroplasty(Right) - Edson Galindo DO Hospital Course (1) Rotator cuff arthropathy of right shoulder: On November 20, 2018 Michael arrived at [facility] and underwent a right reverse shoulder arthroplasty without complication. He had an expert L interscalene block and a general anesthetic. Postoperatively he was placed in a sling and discharged to general orthopedic floors. Overall his hospital course was uneventful. On postop day #1 his H&H was stable and his pain was well controlled. He still did not have feeling in his hand and he had a radial nerve palsy when I saw him in the morning but will see how the block does. He did well with physical therapy doing range of motion exercises. He was then discharged home with oral pain medications. He will follow-up with orthopedics in 2 weeks. Discharge Instructions Home Medications Medication Instructions Recorded Confirmed amlodipine [Norvasc] 2.5 mg PO DAILY 09/02/18 11/20/18 atorvastatin [Lipitor] 40 mg PO DAILY 09/02/18 11/20/18 carvedilol [Coreg] 12.5 mg PO BID 09/02/18 11/20/18 clopidogrel [Plavix] 75 mg PO DAILY 09/02/18 11/20/18 dexlansoprazole [Dexilant] 60 mg PO DAILY 09/02/18 11/20/18 ramipril 5 mg PO BID 09/02/18 11/20/18 aspirin 81 mg PO DAILY 10/26/18 11/20/18 furosemide [Lasix] 20 mg PO DAILY PRN 10/26/18 11/20/18 vitamin B17-gbnro acid 1 tab PO DAILY 10/26/18 11/20/18 thiamine HCl (vitamin B1) [Vitamin 50 mg PO DAILY 11/20/18 11/20/18 B-1] Previous Rx's Medication Instructions Recorded oxycodone 5 - 10 mg PO Q4H PRN #40 tab 11/21/18
--- NOTE | 2018-11-21 11:31 | Anesthesiology Progress Note ---
Date of Service November 21, 2018 Anesthesia Post Procedure Vital Signs Vital Signs: Temp Pulse Pulse Pulse Resp BP Pulse Ox 11/21/18 10:40 36.6 C 99 H 76 16 111/70 94 11/21/18 07:40 36.6 C 76 16 111/70 94 11/21/18 03:10 36.9 C 93 H 18 128/76 93 11/20/18 23:00 37 C 105 H 18 136/78 93 11/20/18 21:34 99 H 147/73 H 11/20/18 16:11 36.3 C L 85 17 135/88 95 11/20/18 15:02 36.4 C L 58 L 16 134/80 96 11/20/18 14:59 62 18 134/80 98 11/20/18 14:08 36.4 C L 56 L 16 129/77 95 11/20/18 13:45 36.1 C L 52 L 17 126/75 95 11/20/18 13:35 52 L 17 131/80 93 11/20/18 13:25 53 L 17 132/85 100 11/20/18 13:15 57 L 17 140/87 99 11/20/18 13:06 36 C L 62 14 173/94 H 95 Pain Intensity Right Shoulder: Pain Intensity: 2 Notes Mental Status: alert / awake / arousable Patient Amnestic to Procedure: Yes Nausea / Vomiting: adequately controlled Pain: adequately controlled Airway Patency, RR, SpO2: stable & adequate BP & HR: stable & adequate Hydration State: stable & adequate Anesthetic Complications: no major complications apparent
== END 2018-11-21 11:38 | disposition home health service (06) | DRG 483 ==
LOC: ASU 08:10 → 3E 14:13

== ENCOUNTER 2019-10-08 09:19 | Observation (INO) ==
--- NOTE | 2019-09-06 13:33 | PAT Medication Instructions ---
Medication Instructions Date of Service September 06, 2019 Home Medications Dexilant 60 mg PO QAM amlodipine [Norvasc] 2.5 mg PO HS atorvastatin [Lipitor] 40 mg PO QAM carvedilol [Coreg] 12.5 mg PO BID clopidogrel [Plavix] 75 mg PO QAM ramipril 5 mg PO BID aspirin 81 mg PO QAM furosemide [Lasix] 40 mg PO QAM vitamin V23-rxdkn acid 1 tab PO QAM thiamine HCl (vitamin B1) [Vitamin B-1] 50 mg PO QAM ASK your prescriber and surgeon clopidogrel [Plavix] 75 mg PO QAM *MUST BE HELD FR A LEAST 7 DAYS PRIOR TO SURGERY FOR SPINAL ANESTHESIA (PREFERRED METHOD) DO NOT take the morning of surgery ramipril 5 mg PO BID furosemide [Lasix] 40 mg PO QAM vitamin X68-mskue acid 1 tab PO QAM thiamine HCl (vitamin B1) [Vitamin B-1] 50 mg PO QAM Take morning of surgery With a small sip of water, OTHERWISE NOTHING TO EAT OR DRINK AFTER MIDNIGHT: Dexilant 60 mg PO QAM atorvastatin [Lipitor] 40 mg PO QAM carvedilol [Coreg] 12.5 mg PO BID aspirin 81 mg PO QAM Take evening before surgery amlodipine [Norvasc] 2.5 mg PO HS carvedilol [Coreg] 12.5 mg PO BID ramipril 5 mg PO BID Other Notes If you have any questions please call us at [phone] or [phone] or [phone] or [phone]
--- NOTE | 2019-09-07 10:51 | Anesthesiology Consultation ---
Date of Service September 07, 2019 Assessment & Plan (1) Encounter for pre-operative examination: Cardiology clearance 09/30/2019: "Lexiscan nuclear stress test negative for inducible ischemia. May proceed with orthopedic surgery as planned." Chart Review Chart Review: Acceptable Risk for Surgery and Patient seen in Pre Admission Testing Teaching & Discussion Instructed NPO after midnight before surgery, except medications with 15 cc of water. Medication instructions provided according to the PAT guidelines. History Surgery Operation Date: 10/08/19 07:00 Proposed Procedures p Bilateral Total Knee Arthroplasty - Edson Galindo DO Height/Weight Height: 6 ft 2 in Weight: 127 kg Allergies Allergy/AdvReac Type Severity Reaction Status Date / Time No Known Allergies Allergy Verified 09/01/19 07:36 Medications Home Medications Medication Instructions Recorded Confirmed Last Taken Dexilant 60 mg PO QAM 09/02/18 09/07/19 11/20/18 06:00 amlodipine [Norvasc] 2.5 mg PO HS 09/02/18 09/07/19 11/18/18 22:00 atorvastatin [Lipitor] 40 mg PO QAM 09/02/18 09/07/19 11/20/18 06:00 carvedilol [Coreg] 12.5 mg PO BID 09/02/18 09/07/19 11/20/18 06:00 clopidogrel [Plavix] 75 mg PO QAM 09/02/18 09/07/19 11/13/18 06:30 ramipril 5 mg PO BID 09/02/18 09/07/19 11/20/18 06:00 aspirin 81 mg PO QAM 10/26/18 09/07/19 11/20/18 06:00 vitamin F29-ruhyi acid 1 tab PO QAM 10/26/18 09/07/19 11/19/18 06:30 thiamine HCl (vitamin B1) [Vitamin 50 mg PO QAM 11/20/18 09/07/19 11/19/18 06:30 B-1] furosemide 20 mg tablet 40 mg PO QAM 09/07/19 09/07/19 Unknown Past Medical History Medical History CAD (coronary artery disease) Has had 4 total caths. 2 stents to the RCA early 2016, had subsequent unstable angina and had 3rd CLARY placed in RCA 06/2017. Remains on Plavix. GERD (gastroesophageal reflux disease) Hiatal hernia Hyperlipidemia Hypertension Osteoarthritis Exercise / Class Metabolic Activity II 4-5 Yardwork/Stairs/Walk up hill (Moving slowly 2/2 knee pain but denies CP or SOB with 1 FOS) Past Family History Family History Mother Family hx of colon cancer Father Family hx of colon cancer Grandfather (Paternal) Family hx of colon cancer Grandmother (Paternal) Family hx of colon cancer Past Surgical History Surgical History History of arthroscopy RT KNEE X 2 History of cardiac cath X 2 History of colonoscopy WITH POLYPECTOMY History of heart artery stent OCT 2016 X 2 STENTS JUNE 2017 X 1 STENT (FOLLOWS GUSTAVO) History of tonsillectomy Hx of shoulder replacement right 11/2018 Rotator cuff arthropathy of right shoulder (Resolved) Past Anesthesia History No Hx of Anesthesia Complications and No Family Hx of Anesthesia Complications History of PONV No Hx of PONV and No Hx of Motion Sickness Social History Smoking Status: Never smoker tobacco type: cigars (rarely) Do You Dip or Chew Tobacco: No Hx Alcohol Use: Yes Alcohol type: beer alcohol intake frequency: 3 or more drinks per day (primarily in evenings) Hx Substance Use: No substance use type: does not use Review of Systems Pt denies any recent chest pain, shortness of breath, palpitations, cough, fever or URI. Physical Exam Vital Signs BP: 122/80 P: 68bpm SPO2: 93% RA T: 98.5 F R: 16 ENMT Mouth: + dental restorations (one cap); no chipped teeth and no loose teeth Thyromental Distance: > or= 3.5 Finger Breadths (3.5) Mallampati Class: II Neck normal visual inspection and + short neck; neck extension not limited Respiratory normal respiratory effort Auscultation: lungs clear to auscultation bilaterally Cardiovascular Rate/Rhythm: regular rate; + abnormal rhythm (irreg irreg (PVCs on EKG)) Heart Sounds: no murmur Vessels: no carotid bruit Extremities: no edema Testing Laboratory Results 09/07/19 10:32 09/07/19 10:34 PT 10.5 Seconds (9.0-12.0) 09/07/19 10:32 INR 1.0 (0.9-1.1) 09/07/19 10:32 APTT 26.4 Seconds (21.0-31.0) 09/07/19 10:32 Blood Type O Positive 09/07/19 10:32 Antibody Screen NEGATIVE 09/07/19 10:32 Electrocardiogram Date: 09/07/19 Findings: + NSR @ (66bpm with 1st degree AV block and frequent PVCs) Chest X-Ray Date: 10/28/18 Findings: + NAD Echocardiogram Date: 11/10/18 EF: 55-59% LV cavity size is normal with mild concentric LVH. The basal septum is thickened and angulated consistent with sigmoid septum. LV wall motion is normal. Grade 1 diastolic dysfunction of left ventricle. Moderate aortic valve sclerosis is present. Mild aortic valve regurgitation is present the aortic root and proximal ascending aorta are mildly enlarged. Compared to prior study of 06/22/2017, there is no significant change. Stress Test Date: 09/29/18 Type: nuclear Resting EF: 66% Myocardial perfusion imaging is normal. Overall LV systolic function was normal without regional wall motion abnormalities. Compared to previous study of March 2017: Inferior wall scar/ischemia has resolved. Cardiac Catheterization Date: 06/20/17 Severe ostial RCA in-stent restenosis. PCI performed.
[2019-09-07 11:33] LABS: Basophils # (auto) 0.06 K/uL (0-0.2); Basophils % (auto) 1.1 %; Eosinophils # (auto) 0.14 K/uL (0-0.5); Eosinophils % (auto) 2.5 %; Hematocrit (blood only) 48.1 % (42-52); Hemoglobin 16.2 g/dL (14.0-18.0); Immature Granulocytes # (auto) 0.01 K/uL (0.00-0.02); Immature Granulocytes % (auto) 0.2 %; Lymphocytes # (auto) 1.36 K/uL (1.2-3.4); Lymphocytes % (auto) 23.9 %; Mean Corpuscular Hemoglobin 34.1 pg (25-34); Mean Corpuscular Hgb Conc 33.7 g/dL (32-36); Mean Corpuscular Volume 101.3 fL (80-100); Mean Platelet Volume 10.3 fL (7.4-10.4); Monocytes # (auto) 0.71 K/uL (0.11-0.59); Monocytes % (auto) 12.5 %; Neutrophils # (auto) 3.42 K/uL (1.4-6.5); Neutrophils % (auto) 59.8 %; Platelet Count 237 K/uL (130-400); RDW Coefficient of Variation 14.2 % (11.5-14.5); RDW Standard Deviation 52.8 fL (36.4-46.3); Red Blood Count 4.75 M/uL (4.7-6.1)
[2019-09-07 11:46] LABS: Partial Thromboplastin Time 26.4 Seconds (21.0-31.0); Prothrombin Time 10.5 Seconds (9.0-12.0)
[2019-09-07 11:49] LABS: BUN Creatinine Ratio 15.4 (10-20); Creatinine Clr Calc Pharmacy 109.8 ml/min; Est GFR (Non-African American) 83.7; Potassium 4.2 mmol/L (3.5-5.1)
--- NOTE | 2019-10-07 06:35 | History & Physical Report ---
Date of Service October 07, 2019 Assessment & Plan (1) Osteoarthritis of knees, bilateral: We will proceed with bilateral total knee arthroplasties. Postoperatively he will be placed back on his aspirin and Plavix for DVT prophylaxis. He will be kept overnight in the hospital for postoperative medical management. He plans to use energy physical therapy upon discharge. Present on Admission?: Yes History of Present Illness Chief Complaint: Primary osteoarthritis of both knees Primary Care Provider: Dada Engle MD Michael is a pleasant 64-year-old male who is been dealing with chronic increasing bilateral knee pain. X-rays and clinical examination have been diagnostic for primary osteoarthritis of both knees. After failing conservative treatment, he has elected proceed with bilateral total knee arthroplasties. Allergies Allergy/AdvReac Type Severity Reaction Status Date / Time No Known Allergies Allergy Verified 09/01/19 07:36 Home Medications Home Medications Medication Instructions Recorded Confirmed Type Dexilant 60 mg PO QAM 09/02/18 09/07/19 History amlodipine [Norvasc] 2.5 mg PO HS 09/02/18 09/07/19 History atorvastatin [Lipitor] 40 mg PO QAM 09/02/18 09/07/19 History carvedilol [Coreg] 12.5 mg PO BID 09/02/18 09/07/19 History clopidogrel [Plavix] 75 mg PO QAM 09/02/18 09/07/19 History ramipril 5 mg PO BID 09/02/18 09/07/19 History aspirin 81 mg PO QAM 10/26/18 09/07/19 History vitamin Z31-wruby acid 1 tab PO QAM 10/26/18 09/07/19 History thiamine HCl (vitamin B1) [Vitamin 50 mg PO QAM 11/20/18 09/07/19 History B-1] furosemide 20 mg tablet 40 mg PO QAM 09/07/19 09/07/19 History Past Med/Surg History Medical History CAD (coronary artery disease) Has had 4 total caths. 2 stents to the RCA early 2016, had subsequent unstable angina and had 3rd CLARY placed in RCA 06/2017. Remains on Plavix. GERD (gastroesophageal reflux disease) Hiatal hernia Hyperlipidemia Hypertension Osteoarthritis Surgical History History of arthroscopy RT KNEE X 2 History of cardiac cath X 2 History of colonoscopy WITH POLYPECTOMY History of heart artery stent OCT 2016 X 2 STENTS JUNE 2017 X 1 STENT (FOLLOWS KOPINSKI) History of tonsillectomy Hx of shoulder replacement right 11/2018 Rotator cuff arthropathy of right shoulder (Resolved) Family History Mother Family hx of colon cancer Father Family hx of colon cancer Grandfather (Paternal) Family hx of colon cancer Grandmother (Paternal) Family hx of colon cancer Social History Preferred Language: Pashto Communication Ability: Effective Air Vice Marshal Required: No Beliefs That Will Affect Care: None Current Living Situation: Spouse Other Information That Helps Us Care for You: No Feels Safe at Home: Yes Safety Concerns: Feels Safe At This Time Smoking Status: Never smoker Tobacco Type: cigars (rarely) ; Do You Dip or Chew Tobacco: No ; Second Hand Exposure: No ; Tobacco Cessation Education Requested by Patient: No Hx Alcohol Use: Yes Alcohol type: beer Hx Substance Use: No Review of Systems All systems reviewed & are unremarkable except as noted in HPI & below Physical Exam Constitutional: WD/WN, vitals as above Eyes: PERRL, conjunctivae normal, anicteric sclerae ENMT: external ear and nose normal, oropharynx normal Neck: trachea midline, no thyromegaly Respiratory: normal respiratory effort Cardiovascular: RRR, no murmur, no edema Gastrointestinal (Abdomen): normal bowel sounds, soft, nontender, no hepa tosplenomegaly Musculoskeletal: Physical examination of both knees are similar. There is a trace effusion. There is near full range of motion and no evidence of instability. There is significant tenderness palpation along the medial and lateral joint lines and over the distal femoral condyles. Psychiatric: A+Ox3, euthymic affect Results & Data Diagnostic Findings Radiographs of both knees demonstrate advanced osteoarthritis with joint space narrowing osteophyte formation and [id number] articulation.
[~2019-10-08 09:19] MED LIST changes: +BUPIVACAINE 0.5 % 5 MG/1 ML PF 10ML VIAL ONE; +BUPIVACAINE/EPINEPHRINE 0.25% 1:200,000 30 ML VIAL ONE; -CEFAZOLIN 3000MG 65 ML IV SCH; +CEFAZOLIN 3000MG 72.5 ML IV SCH; +DEXAMETHASONE SOD INJ 4 MG/ML VIAL ONE; +GABAPENTIN 300 MG CAP PO SCH; -GABAPENTIN 300 MG x 2 PO SCH; -LR 15ML/HR IV SCH; +LR 500ML BOLUS, THEN 15ML/HR IV SCH; -ROPIVACAINE 0.5% 5 MG/ML 30 ML VIAL ONE; -ROPIVACAINE 0.5% HCL/PF 150 MG, BUPIVACAINE 0.5% MPF 30 ML, EPINEPHrine 30MG/30ML (OR U... INFIL SCH; +ROPIVACAINE 0.5% HCL/PF 150 MG, BUPIVACAINE 0.5% MPF 30 ML, EPINEPHrine 30MG/30ML (OR U... INSTIL SCH; +dexAMETHasone 4 MG TAB PO SCH
--- NOTE | 2019-10-08 09:59 | History & Physical Bridge Note ---
Date of Service October 08, 2019 History & Physical Bridge Note I have examined the patient, reviewed the History & Physical and in the interval since the performance of the History & Physical I have noted the following changes of clinical significance: no changes noted
[2019-10-08] MEDS ORDERED: LIDOCAINE HCL 2% 2 ML VIAL/AMP(20MG/ML) INFIL ONE (10:30)
[2019-10-08] MEDS ORDERED: PROPOFOL IV EMULSION 10 MG/ML 20 ML VIAL IV ONE ×6 (10:30→13:14)
[2019-10-08] MEDS ORDERED: ORTHO JOINT ANESTHETIC ONE (10:31)
[2019-10-08] MEDS ORDERED: MIDAZOLAM HCL 1 MG/ML 2ML VIAL ONE ×2 (10:31→12:38)
[2019-10-08] MEDS ORDERED: TRANEXAMIC ACID / 0.7% NACL 1000MG/100ML BAG IV ONE (10:42)
[2019-10-08] MEDS ORDERED: fentaNYL citrate 100 MCG/2 ML VIAL IV PRN (11:25)
[2019-10-08] MEDS ORDERED: ATROPINE SULFATE 0.1 MG/ML 10ML SYR IV PRN (11:25)
[2019-10-08] MEDS ORDERED: ONDANSETRON INJ 2 MG/ML 2 ML VIAL IV PRN ×2 (11:25→16:02)
[2019-10-08] MEDS ORDERED: ePHEDrine sulfate 50 MG/ML AMP IV PRN (11:25)
[2019-10-08] MEDS ORDERED: KETAMINE HCL INJ 50 MG/ML 10 ML VIAL ONE (11:55)
[2019-10-08] MEDS ORDERED: ESMOLOL HCL INJ 10 MG/ML 10ML VIAL IV ONE (12:14)
[2019-10-08] MEDS ORDERED: GLYCOPYRROLATE 0.2 MG/ML VIAL ONE (12:14)
--- NOTE | 2019-10-08 14:22 | Operative Report ---
PG Post Operative Report Pre & Post Diagnosis Operation Date: 10/08/19 11:50 Pre-Op Diagnosis: BILATERAL KNEE DEGENERATIVE JOINT DISEASE Post-Op Diagnosis: BILATERAL KNEE DEGENERATIVE JOINT DISEASE I identified the patient and participated in the time-out.: Yes Procedure Operation Date: 10/08/19 11:50 Actual Procedures p Bilateral Total Knee Arthroplasty(Bilateral) - Edson Galindo DO Surgeon Edson Galindo DO Power Press Tender Edson Barker PAC Estimated Blood Loss 50 Findings Consistent with Post-Op Diagnosis Specimens Right and left femoral and tibial bone Complications none Disposition Disposition: Recovery Room Indications Michael is a pleasant 64-year-old male who presented my office with complaints of bilateral knee pain. X-rays and clinical examination were diagnostic for primary osteoarthritis of both knees. After failing conservative treatment, he elected proceed with bilateral total knee arthroplasties. Description of Procedure The patient arrived [facility] [address] for the above procedure. They were seen in the preoperative holding area and the operative extremities were identified and signed. They were given a preoperative antibiotic, a spinal anesthetic and an adductor nerve block. There were taken back to the operating room and laid on the table in supine position. There were given basic sedation. The knees were then prepped and draped in sterile fashion. A timeout was done, and the patient and the operative extremities were properly identified. Right Knee Implants used: I used a [employer] V[employer]ard total knee arthroplasty system with a size 80 femur, 87 tibia, 37 patella, and a size 10 PS plus polyethylene bearing. All components were cemented in place with Palacos G cement. A midline incision was made directly over the patella. Dissection was taken down to the extensor mechanism. A subvastus arthrotomy was used. The medial retinaculum was released and the fat pad was mostly left intact. The knee was flexed and the ACL, PCL, and meniscus were removed. A drill was sent down the center of the femoral canal followed by an intramedullary malika. Off that malika a distal femoral cutting block was placed. 9 mm was resected off the distal femur at 5 of valgus. A posterior referencing AP sizing guide was then placed on the distal femur. The femur measured to be a size 80. 2 drill holes were placed in 3 of external rotation. A 4-in-1 cutting block was then impacted into place. Anterior posterior and chamfer cuts were then made. The posterior stabilizing box guide was then impacted into place and the box was resected for the posterior stabilizing component. The proximal tibia was then exposed. A drill was sent down the center of the tibial canal followed by an intramedullary malika. Off that malika a proximal tibial resection guide was placed. The proximal tibia was then resected. The tibia measured to be a size 87. The tibial plate was then placed in the appropriate rotation and the tibia was punched. The posterior aspect of the knee was then opened up and any additional meniscus fragments and osteophytes were removed. Trial components were then placed. I used a size 10 PS plus polyethylene ins ert. The knee was brought through a full range of motion and felt to be stable. The patella was then everted and 8 mm was resected off the posterior aspect of the patella. The patella measured to be a size 37. 3 peg holes were then drilled. A trial patella was placed. The knee was once again brought through a full range of motion and felt to be stable. Trial components were then removed. The surrounding soft tissues were injected with 50 cc of an orthopedic pain control cocktail. All components were then cemented into place with Palacos G cement. The final polyethylene insert was then snapped into place and the anterior bar was locked. Once cement was dry the tourniquet was deflated. Hemostasis was obtained. A dilute betadyne lavage was then done for 3 minutes. The joint was then irrigated with normal saline solution. The subvastus arthrotomy was then closed with #1 Vicryl suture. The skin was closed with 2-0 Vicryl, 3-0V lock suture, and maria esther. A soft compressive dressing was placed. Left Knee Implants used: I used a [employer] total knee arthroplasty system with a size 80 femur, 87 tibia, 37 patella, and a size 10 PS plus polyethylene bearing. All components were cemented in place with Palacos G cement. A midline incision was made directly over the patella. Dissection was taken down to the extensor mechanism. A subvastus arthrotomy was used. The medial retinaculum was released and the fat pad was mostly left intact. The knee was flexed and the ACL, PCL, and meniscus were removed. A drill was sent down the center of the femoral canal followed by an intramedullary malika. Off that malika a distal femoral cutting block was placed. 9 mm was resected off the distal femur at 5 of valgus. A posterior referencing AP sizing guide was then placed on the distal femur. The femur measured to be a size 80. 2 drill holes were placed in 3 of external rotation. A 4-in-1 cutting block was then impacted into place. Anterior posterior and chamfer cuts were then made. The posterior stabilizing box guide was then impacted into place and the box was resected for the posterior stabilizing component. The proximal tibia was then exposed. A drill was sent down the center of the tibial canal followed by an intramedullary malika. Off that malika a proximal tibial resection guide was placed. The proximal tibia was then resected. The tibia measured to be a size 87. The tibial plate was then placed in the appropriate rotation and the tibia was punched. The posterior aspect of the knee was then opened up and any additional meniscus fragments and osteophytes were removed. Trial components were then placed. I used a size 10 PS plus polyethylene insert. The knee was brought through a full range of motion and felt to be stable. The patella was then everted and 8 mm was resected off the posterior aspect of the patella. The patella measured to be a size 37. 3 peg holes were then drilled. A trial patella was placed. The knee was once again brought through a full range of motion and felt to be stable. Trial components were then removed. The surrounding soft tissues were injected with 50 cc of an orthopedic pain control cocktail. All components were then cemented into place with Palacos G cement. The final polyethylene insert was then snapped into place and the anterior bar was locked. Once cement was dry the tourniquet was deflated. Hemostasis was obtained. A dilute betadyne lavage was then done for 3 minutes. The joint was then irrigated with normal saline solution. The subvastus arthrotomy was then closed with #1 Vicryl suture. The skin was closed with 2-0 Vicryl, 3-0V lock suture, and maria esther. A soft compressive dressing was placed. The patient was then transferred to a hospital bed and taken to the postanesthesia care unit in stable condition. They tolerated the procedure well. I attest to the content of the Intraoperative Record and any orders documented therein. Any exceptions are noted below.
--- NOTE | 2019-10-08 15:19 | XRay Report ---
XR knee RT 1 or 2V routine CLINICAL HISTORY: Surgical Post Op COMPARISON: None. DISCUSSION: Anatomic alignment posttotal right knee arthroplasty. Could contact between prosthetic an d underlying bone. Expected postoperative soft tissue change IMPRESSION: Anatomic alignment post total right knee arthroplasty. ACT 112: Negative or not required by law. The above report was generated using voice recognition software. It may contain grammatical, syntax or spelling errors. Electronically signed by: Robert Alexander M.D. 10/08/2019 3:18 PM
--- NOTE | 2019-10-08 15:20 | XRay Report ---
XR knee LT 1 or 2V routine CLINICAL HISTORY: Surgical Post Op postoperative evaluation COMPARISON: None. DISCUSSION: Anatomic alignment posttotal left knee arthroplasty. Good contact between prosthetic and underlying bone. Expected soft tissue postoperative change. IMPRESSION: Anatomic alignment posttotal left knee arthroplasty. ACT 112: Negative or not required by law. The above report was generated using voice recognition software. It may contain grammatical, syntax or spelling errors. Electronically signed by: Robert Alexander M.D. 10/08/2019 3:19 PM
--- NOTE | 2019-10-08 15:21 | Anesthesiology Progress Note ---
Date of Service October 08, 2019 Anesthesia Post Procedure Vital Signs Vital Signs: Temp Pulse Pulse Resp BP Pulse Ox 10/08/19 15:10 63 22 112/63 95 10/08/19 15:00 67 22 116/74 95 10/08/19 14:53 37.3 C 86 20 131/82 93 10/08/19 10:19 36.9 C 65 20 150/92 H 98 Transfer of Care Handoff Completed per policy Notes Mental Status: alert / awake / arousable Patient Amnestic to Procedure: Yes Nausea / Vomiting: adequately controlled Pain: adequately controlled Airway Patency, RR, SpO2: stable & adequate BP & HR: stable & adequate Hydration State: stable & adequate Neuraxial Anesthesia: was administered and sensory block is resolving Anesthetic Complications: no major complications apparent
[2019-10-08] MEDS ORDERED: NALOXONE HCL 0.4 MG/1 ML VIAL/CARP IV PRN (16:02)
[2019-10-08] MEDS ORDERED: OXYCODONE HCL IR 5 MG TAB (IMMEDIATE RELEASE) PO PRN (16:02)
[2019-10-08] MEDS ORDERED: MAGNESIUM HYDROXIDE SUSP 30 ML UDC PO PRN (16:02)
[2019-10-08] MEDS ORDERED: bisacodyL 10 MG SUPP PR PRN (16:02)
[2019-10-08] MEDS ORDERED: HYDROmorphone INJ 0.5 MG/0.5 ML SYR IV PRN (16:02)
[2019-10-08] MEDS ORDERED: METOCLOPRAMIDE HCL INJ 5 MG/ML 2 ML VIAL IV PRN (16:02)
[2019-10-08] MEDS ORDERED: SODIUM CHLORIDE 0.9% 1000ML 1,000 ML IV SCH (17:00)
[2019-10-08] MEDS: KETOROLAC TROMETHAMINE 15 MG/ML VIAL IV SCH ×2 (17:38→23:51)
[2019-10-08] MEDS: CEFAZOLIN 2000MG 2,000 MG/15 ML SYR IV SCH (20:55)
[2019-10-08] MEDS ORDERED: AMLODIPINE BESYLATE 5 MG TAB PO SCH (21:00)
[2019-10-08] MEDS ORDERED: SENNA 8.6 MG TAB PO SCH (21:00)
[2019-10-08] MEDS: carvediloL 12.5 MG TAB PO SCH (21:00)
[2019-10-08] MEDS: ENALAPRIL MALEATE 10 MG TAB PO SCH (21:00)
[2019-10-08] MEDS: ASPIRIN 81 MG ECTAB PO SCH (21:07)
[2019-10-08] MEDS: DOCUSATE SODIUM 100 MG CAP PO SCH (21:07)
[2019-10-08] MEDS: ACETAMINOPHEN 500 MG TAB PO SCH (21:09)
[2019-10-09] MEDS: CEFAZOLIN 2000MG 2,000 MG/15 ML SYR IV SCH (04:16)
[2019-10-09] MEDS: KETOROLAC TROMETHAMINE 15 MG/ML VIAL IV SCH (05:40)
[2019-10-09] MEDS: ACETAMINOPHEN 500 MG TAB PO SCH (05:40)
[2019-10-09 06:45] LABS: Hemoglobin 12.3 g/dL (14.0-18.0); Mean Corpuscular Hemoglobin 33.6 pg (25-34); Mean Corpuscular Hgb Conc 34.2 g/dL (32-36); Mean Corpuscular Volume 98.4 fL (80-100); Mean Platelet Volume 9.8 fL (7.4-10.4); Platelet Count 215 K/uL (130-400); RDW Coefficient of Variation 13.6 % (11.5-14.5); RDW Standard Deviation 48.6 fL (36.4-46.3); Red Blood Count 3.66 M/uL (4.7-6.1); White Blood Count 12.24 K/uL (4.8-10.8)
[2019-10-09 07:18] LABS: BUN Creatinine Ratio 17.4 (10-20); Calcium 8.3 mg/dl (8.5-10.1); Est GFR (Non-African American) 76.8; Potassium 3.6 mmol/L (3.5-5.1)
[2019-10-09] MEDS ORDERED: dexAMETHasone 4 MG TAB PO SCH (08:00)
[2019-10-09] MEDS: DOCUSATE SODIUM 100 MG CAP PO SCH (08:42)
[2019-10-09] MEDS: ENALAPRIL MALEATE 10 MG TAB PO SCH (08:42)
[2019-10-09] MEDS: carvediloL 12.5 MG TAB PO SCH (08:42)
[2019-10-09] MEDS: ASPIRIN 81 MG ECTAB PO SCH (08:42)
[2019-10-09] MEDS ORDERED: MULTIVITAMIN TAB PO SCH (09:00)
[2019-10-09] MEDS ORDERED: FUROSEMIDE 40 MG TAB PO SCH (09:00)
[2019-10-09] MEDS ORDERED: PANTOprazole 40 MG TAB PO SCH (09:00)
[2019-10-09] MEDS ORDERED: ATORVASTATIN 40 MG TAB PO SCH (09:00)
[2019-10-09] MEDS ORDERED: THIAMINE HCL 50 MG TABLET PO SCH (09:00)
[2019-10-09] MEDS ORDERED: CLOPIDOGREL BISULFATE 75 MG TAB PO SCH (09:00)
[2019-10-09] MEDS ORDERED: NON-FORMULARY MEDICATION (Vitamin B12-Folic Acid 1 TAB) PO SCH (09:00)
--- NOTE | 2019-10-09 09:19 | Orthopedic Progress Note ---
Date of Service October 09, 2019 Assessment & Plan (1) History of bilateral knee replacement: Overall he is doing very well. Is not having much pain in the knees. We will leave the knees wrapped throughout the day today. The dressings can be changed tomorrow. He will be seen by physical therapy today. He will do ambulation and range of motion exercises. He is on aspirin and Plavix for DVT prophylaxis. We will see how he does later this afternoon. If he is doing well he can be discharged to home, however, we can keep him till tomorrow if he is having pain or any difficulty with therapy. Present on Admission?: Yes Subjective Michael was seen and examined at bedside this morning. Overall is doing fairly well. He has been up and ambulating to the bathroom. He is not having too much pain in the knees. The dressings were reinforced last night. He has no other complaints. Physical Exam Musculoskeletal: On physical examination of both knees, the dressings have been reinforced. He is sitting in the chair with his knees flexed at about 80 degrees. He has active dorsiflexion and plantarflexion of both ankles. He has no complaints. Results & Data Vital Signs (Past 12 Hours) Vital Signs Temp Pulse Resp BP Pulse Ox 10/09/19 08:05 36.7 C 69 16 143/91 H 99 10/09/19 02:54 36.5 C 67 18 148/82 H 94 10/08/19 23:30 36.6 C 64 18 119/71 95 Laboratory Results H & H 09/07/19 10/09/19 Range/Units 10:32 06:25 Hgb 16.2 12.3 L (14.0-18.0) g/dL Hct 48.1 36.0 L (42-52) % Coagulation 09/07/19 Range/Units 10:32 INR 1.0 (0.9-1.1) Diagnostic Findings Postoperative x-rays of both knees show the prosthesis to be in anatomic alignment without any evidence of fracture, dislocation, or loosening. PG Care Time/CCT Total # of Minutes Spent Total Time Spent with Patient: Total time spent is greater than 50% in coordination of care (as documented) at patient's floor/unit and/or counseling patient: Coding Level of Care Code None Diagnoses History of bilateral knee replacement Z96.653
--- NOTE | 2019-10-10 07:46 | Discharge Summary ---
Date of Service October 10, 2019 Admission HPI Per Admitting Provider Michael is a pleasant 64-year-old male who is been dealing with chronic increasing bilateral knee pain. X-rays and clinical examination have been diagnostic for primary osteoarthritis of both knees. After failing conservative treatment, he has elected proceed with bilateral total knee arthroplasties. Principal Diagnosis Bilateral total knee arthroplasty Discharge Data Allergies Allergy/AdvReac Type Severity Reaction Status Date / Time No Known Allergies Allergy Verified 10/08/19 10:15 Consultations 10/08/19 16:02 Consult Case Management - Discharge Planning Routine Procedures Performed Operation Date: 10/08/19 11:50 Actual Procedures p Bilateral Total Knee Arthroplasty(Bilateral) - Edson Galindo DO Ordered Studies 10/08/19 05:00 US - OR guided needle placemen Routine Hospital Course (1) History of bilateral knee replacement: On October 08, 2019 Michael arrived at [facility] and underwent bilateral knee replacements without complication. He had a spinal anesthetic and bilateral adductor canal nerve blocks. Postoperatively he was started on aspirin for DVT prophylaxis and discharged to general orthopedic floors. His hospital course was uneventful. On postop day #1 his H&H was stable and his pain was well controlled. He was able to ambulate well with physical therapy. He was then discharged to home. He will follow-up with orthopedics in 2 weeks. Total Time Total Time Spent Total Time Spent (In Minutes): 20 Discharge Plan Discharge Items Patient Disposition: Home - Self-Care Reason For Visit: BILATERAL KNEE DEGENERATIVE JOINT DISEASE Discharge Diagnosis: Bilateral total knee arthroplasty Activity: As commented below Non-emergency contact: Surgeon Call non-emergency contact if: your wound has increased redness and your wound has increased drainage Follow-up/Referrals: Dada Engle MD [Primary Care Provider] - Diet: Regular Addtl Attending Provider Instructions: Activity and Therapy Recommendations: * If you are using [facility] then therapy will be provided at your home until they feel you have accomplished all of your goals. * If you are using [facility] then Physical Therapy will be provided until they feel you are ready to start Outpatient Physical Therapy. * If you are not using home therapy then Outpatient Physical Therapy should start about 3-5 days from your day of surgery. Therapy will last about 6-10 weeks * It is important not to put a pillow under your knee when you are relaxing or sleeping. It is just as important to make sure you are getting your knee perfectly straight as it is to regain your knee bend. * You were shown a series of exercises in the hospital. Do these exercises three times each day including the exercises you were shown in physical therapy. * Get up and walk several times each day. For the first four weeks, try not to stand or walk for more than one hour at a time. If you do stand or walk for more than one hour, you will not hurt anything, but your leg will likely swell. * As you feel comfortable, you may change from the walker or crutches to a cane and then to independent walking. Medications: * Narcotic You will likely be sent home from the hospital with a prescription for the narcotic pain medication that worked best throughout your stay. * Aspirin Most patients will be required to take Aspirin 81mg twice a day for 6 weeks after surgery. This is obtained [id number] and a prescription is not necessary. * Other medications may be prescribed for specific circumstances. If you have any questions, please call the office at . * Resume previous home medications unless otherwise instructed TEDs/Elastic Stockings: The white elastic stockings help limit swelling and prevent blood clots from forming in your legs.~ The more you wear them, the more they work. Wear them for six weeks. Dressing Care: If the incision is not draining then you may leave the maria esther open to air. If there is a little bit of drainage or if the maria esther are getting stuck on your clothing then cover the incision with a dry dressing. The maria esther will be removed at your 2 week follow-up appointment. Showering: You may shower 5 days from the day of surgery. Let the soapy shower water run over the maria esther and pat them dry. Do not scrub or soak the incision. Things To Watch For: * Drainage from the incision site that occurs more than one week after your surgery. * Increased redness at the incision site. * Fever above 102 degrees Fahrenheit. * Unusual chest pain or shortness of breath. * Call [facility] at with any of the above problems Follow-Up Visit: Follow-up with Dr. Galindo 2-3 weeks after your day of surgery. An appointment was probably scheduled when you signed-up for surgery in the office. If you have any questions call Office Instructions: More detailed instructions as well as Frequently Asked Questions were provided in a folder by our office when you signed-up for surgery. Please review these instructions when you get home. If you have any further questions or concerns, please feel free to call the office at [phone] Pending Studies at Discharge: No Stand-Alone Forms: [facility], Opioid Pain Management, Smoking Cessation Medications and DC Order Prescriptions: New oxycodone 5 mg Tablet 5 mg PO Q4H PRN (Reason: pain) Qty: 30 RF: 0 Continued atorvastatin [Lipitor] 40 mg tablet 40 mg PO QAM RF: 0 carvedilol [Coreg] 12.5 mg tablet 12.5 mg PO BID RF: 0 amlodipine [Norvasc] 2.5 mg tablet 2.5 mg PO HS RF: 0 clopidogrel [Plavix] 75 mg tablet 75 mg PO QAM RF: 0 ramipril [Altace] 5 mg capsule 5 mg PO BID RF: 0 Dexilant 60 mg capsule,biphase delayed releas 60 mg PO QAM RF: 0 aspirin 81 mg Tablet,Delayed Release (Dr/Ec) 81 mg PO QAM RF: 0 vitamin K17-ibcol acid 0.5-1 mg Tablet 1 tab PO QAM RF: 0 thiamine HCl (vitamin B1) [Vitamin B-1] 50 mg Tablet 50 mg PO QAM RF: 0 furosemide [Lasix] 20 mg tablet 40 mg PO QAM RF: 0 Discharge Orders: Discharge Order (Routine); Ordered 10/09/19 Ordered By: Edson Card/Other Patient Handouts: Surgery Prevent DVT After, ED Stockings Kushal Admission Data Admit Date/Time: 10/08/19 14:59 Attending Provider: Edson Galindo Admit Provider: Edson Galindo Primary Care Provider: Dada Engle Other Interventions: Discharge Summary Assessment (RN) Last Done: 10/09/19 10:19 DC Date/Time DO NOT enter until pt leaves facility: 10/09/19 11:08 Coding Level of Care Code D/C Day Management <30 mins Diagnoses History of bilateral knee replacement Z96.653
== END 2019-10-09 11:08 | disposition home or self-care (01) ==
LOC: ASU 09:19 → INTOOBSV 14:59 → 3E 14:59